=== PATIENT | male | born 1995 | race Two or more races ===

== ENCOUNTER 2022-01-03 14:52 | Emergency (ER) | payer SELFPAY ==
[~2022-01-03] VITALS: Ht 182.9 cm; Wt 86.2 kg
[2022-01-03 14:55] VITALS: BP 127/69
== END 2022-01-03 15:49 | disposition left against medical advice (07) ==
LOC: ER 14:52
DX: K08.89 Other specified disorders of teeth and supporting structures (principal); Z53.21 Procedure and treatment not carried out due to patient leaving prior to being seen by health care provider

== ENCOUNTER 2022-01-22 00:04 | Emergency (ER) | payer SELFPAY ==
[~2022-01-22] VITALS: Ht 190.5 cm; Wt 86.2 kg
[2022-01-22 02:16] VITALS: BP 126/79
== END 2022-01-22 02:53 | disposition left against medical advice (07) ==
LOC: ER 00:04
DX: S69.92XA Unspecified injury of left wrist, hand and finger(s), initial encounter (principal); Z53.21 Procedure and treatment not carried out due to patient leaving prior to being seen by health care provider; W23.0XXA Caught, crushed, jammed, or pinched between moving objects, initial encounter; Y93.89 Activity, other specified; Y92.89 Other specified places as the place of occurrence of the external cause; Y99.8 Other external cause status

== ENCOUNTER 2023-10-22 09:06 | Emergency (ER) | payer MEDICAID, OTHER ==
[~2023-10-22] VITALS: Ht 188 cm; Wt 93.8 kg
[2023-10-22 09:37] VITALS: BP 117/68; PULSE 72; RESP 18; TEMP 98.2; O2SAT 99
[2023-10-22] MEDS ORDERED: BENZOCAINE (DENTAL) 20 % SPRAY 60ML MT ONE (09:45)
[2023-10-22] MEDS ORDERED: ACET30TA15 PO (10:23)
== END 2023-10-22 10:27 | disposition home or self-care (01) ==
LOC: ER 09:06
DX: K02.9 Dental caries, unspecified (principal)